=== PATIENT | female | born 1995 | race Caucasian/White ===

== ENCOUNTER 2017-10-13 17:46 | Emergency (ER) | payer OTHER ==
[~2017-10-13] VITALS: Ht 157.5 cm; Wt 56.0 kg
[~2017-10-13 17:46] MED LIST: QUET100T PO; TOPI50CA6 PO
[2017-10-13] MEDS ORDERED: DIAZEPAM 5 MG TABLET PO ONE (20:00)
[2017-10-13] MEDS ORDERED: DIAZEPAM 5 MG TABLET ONE (20:04)
[2017-10-13 21:01] VITALS: BP 122/62
== END 2017-10-13 21:04 | disposition home or self-care (01) ==
LOC: ED 18:30
DX: S16.1XXA Strain of muscle, fascia and tendon at neck level, initial encounter (principal); F31.9 Bipolar disorder, unspecified; V49.3XXA Car occupant (driver) (passenger) injured in unspecified nontraffic accident, initial encounter; Y93.89 Activity, other specified; Y99.8 Other external cause status; Y92.89 Other specified places as the place of occurrence of the external cause
CPT/HCPCS: 72072; 72125; 99284

== ENCOUNTER 2018-01-13 12:07 | Emergency (ER) | payer OTHER ==
[~2018-01-13] VITALS: Ht 157.5 cm; Wt 55.9 kg
[2018-01-13] MEDS ORDERED: FLUO20CA19 PO (12:24)
[2018-01-13] MEDS ORDERED: LAMO200T4 PO (12:25)
[2018-01-13] MEDS ORDERED: LURA40TA PO (12:25)
[2018-01-13] MEDS ORDERED: SODIUM CHLORIDE 0.9% 1,000ML IVBOLUS ONE ×2 (12:30→13:30)
[2018-01-13 12:36] LABS: BASOPHILS # (AUTO) 0.04 x10^3/uL (0-0.3); BASOPHILS % (AUTO) 1 % (0-1); EOSINOPHILS # (AUTO) 0.02 x10^3/uL (0-0.8); EOSINOPHILS % (AUTO) 0 % (1-7); LYMPHOCYTES # (AUTO) 1.89 x10^3/uL (1-6.1); LYMPHOCYTES % (AUTO) 27 % (22-44); MD NO; MEAN CORPUSCULAR HEMOGLOBIN 30.4 pg (27.0-34.8); MEAN CORPUSCULAR HGB CONC 34.7 g/dL (32.4-35.8); MEAN CORPUSCULAR VOLUME 87.5 fL (80-100); MEAN PLATELET VOLUME 8.9 fL (7.4-10.4); MONOCYTES # (AUTO) 0.47 x10^3/uL (0-1.4); MONOCYTES % (AUTO) 7 % (2-9); NEUTROPHILS # (AUTO) 4.64 x10^3/uL (1.8-8.0); NEUTROPHILS % (AUTO) 66 % (42-75); PLATELET COUNT 255 x10^3/uL (130-400); RED BLOOD COUNT 4.73 x10^6/uL (3.82-5.3); RED CELL DISTRIBUTION WIDTH 14.1 % (9.6-15.2)
[2018-01-13 12:47] LABS: ALBUMIN 4.2 g/dL (3.4-5.0); ANION GAP 10 mmol/L (5-15); CALCIUM 8.6 mg/dL (8.5-10.1); CHLORIDE 110 mmol/L (98-107)
[2018-01-13 13:16] VITALS: BP 109/60
== END 2018-01-13 13:52 | disposition home or self-care (01) ==
LOC: ED 13:35
DX: R42 Dizziness and giddiness (principal); R55 Syncope and collapse; G43.909 Migraine, unspecified, not intractable, without status migrainosus; F31.9 Bipolar disorder, unspecified
CPT/HCPCS: 36415; 80048; 82040; 84703; 85025; 93005; 96360; 99285; J7030

== ENCOUNTER 2018-04-30 09:48 | Emergency (ER) | payer OTHER ==
[~2018-04-30] VITALS: Ht 157.5 cm; Wt 56.3 kg
[~2018-04-30 09:48] MED LIST changes: +FLUO20CA19 PO; +LAMO200T4 PO; +LURA40TA PO
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
--- NOTE | 2018-04-30 10:38 | NUR ---
Jesenia edmond in EDM - 04/30/18 at 1039 by ROSALEE PT TAKING PO FLUIDS. NEED TO MEDICATE FOR FEVER AND INCREASE PO INTAKE WHILE FLU + AND NURSING D/W PT W/ + UNDERSTANDING INDICATED.
[2018-04-30 11:22] LABS: BASOPHILS # (AUTO) 0.02 x10^3/uL (0-0.1); BASOPHILS % (AUTO) 0 % (0-1); EOSINOPHILS # (AUTO) 0.04 x10^3/uL (0-0.4); EOSINOPHILS % (AUTO) 1 % (1-7); LYMPHOCYTES # (AUTO) 1.75 x10^3/uL (1-3.4); LYMPHOCYTES % (AUTO) 37 % (22-44); MD NO; MEAN CORPUSCULAR HEMOGLOBIN 29.2 pg (27.0-34.8); MEAN CORPUSCULAR HGB CONC 33.8 g/dL (32.4-35.8); MEAN CORPUSCULAR VOLUME 86.6 fL (80-100); MEAN PLATELET VOLUME 8.7 fL (7.4-10.4); MONOCYTES # (AUTO) 0.34 x10^3/uL (0.2-0.8); MONOCYTES % (AUTO) 7 % (2-9); NEUTROPHILS # (AUTO) 2.57 x10^3/uL (1.8-6.8); NEUTROPHILS % (AUTO) 54 % (42-75); PLATELET COUNT 259 x10^3/uL (130-400); RED BLOOD COUNT 4.75 x10^6/uL (3.82-5.3); RED CELL DISTRIBUTION WIDTH 13.9 % (9.6-15.2)
[2018-04-30 11:36] LABS: ALBUMIN 3.8 g/dL (3.4-5.0); ANION GAP 6 mmol/L (5-15); CALCIUM 8.2 mg/dL (8.5-10.1); CHLORIDE 111 mmol/L (98-107)
[2018-04-30 11:42] LABS: ALANINE AMINOTRANSFERASE 13 U/L (12-78); ALKALINE PHOSPHATASE 56 U/L (45-117); BILIRUBIN,TOTAL 0.7 mg/dL (0.2-1.0); CREATININE 0.67 mg/dL (0.55-1.02)
[2018-04-30 12:03] VITALS: BP 121/71
== END 2018-04-30 12:05 | disposition home or self-care (01) ==
LOC: ED 10:34
DX: R55 Syncope and collapse (principal); G43.009 Migraine without aura, not intractable, without status migrainosus; F31.9 Bipolar disorder, unspecified
CPT/HCPCS: 36415; 80053; 84703; 85025; 93005; 99284